=== PATIENT | male | born 1975 | race Caucasian/White ===

== ENCOUNTER 2018-03-15 19:50 | Emergency (ER) | payer MEDICARE, MEDICAID, SELFPAY ==
[2018-03-15 19:52] VITALS: BP 145/87; PULSE 91; RESP 24; TEMP 36.3; O2SAT 97; BMI 45.4
[2018-03-15 20:25] LABS: Absolute Lymphocyte Count 1.96 X10^3/ul (0.83-4.51); Absolute Neutrophil Count 7.3 X10^3/uL (2.0-7.7); Basophil# 0.03 X10^3/uL; Basophil% 0.3 % (0-1); Eosinophil# 0.09 X10^3/uL; Eosinophils% 0.9 % (0-5); Hematocrit 41.5 % (40-54); Hemoglobin 13.9 g/dl (13.0-16.5); Lymphocyte # 1.96 X10^3/ul (4.0); Lymphocyte % 19.5 % (19-41); Mean Corp Hgb Conc 33.5 g/gl (32-36); Mean Corpuscular Hgb 29.7 pg (27.0-32.0); Mean Corpuscular Volume 88.7 fL (80-94); Mean Platelet Vol. 10.9 fl (6.2-12.0); Monocyte# 0.65 X10^3/uL; Monocyte% 6.5 % (0-10); Neutrophil # 7.25 X10^3/uL (2.7-7.7); Neutrophil % 72.1 % (47-70); Platelet Count 249 K/mm3 (150-450); RBC Distribution Width CV 14.1 % (11.6-14.6); RBC Distribution Width SD 45.3 fl (35.1-43.9); Red Blood Count 4.68 M/mm3 (4.6-6.2); White Blood Count 10.1 K/mm3 (4.4-11.0)
[2018-03-15 20:27] LABS: POSITIVE COUNT NO; POSITIVE DIFFERENTIAL NO; POSITIVE MORPHOLOGY NO
[2018-03-15 20:31] LABS: Amphetamine Urine VISTA NEGATIVE (<1000 ng/mL); Barbiturate Urine VISTA NEGATIVE (< 200 ng/mL); Benzodiazepine Urine VISTA NEGATIVE (< 200 ng/mL); Cocaine Urine VISTA NEGATIVE (< 300 ng/mL); Ecstacy Urine VISTA NEGATIVE (< 500 ng/mL); Methadone Urine VISTA NEGATIVE (< 300 ng/mL); PCP Urine VISTA NEGATIVE (< 25 ng/mL); THC Urine VISTA NEGATIVE (< 50 ng/mL); Vista UDS pH Range 6
[2018-03-15 20:38] LABS: Anion Gap 12 (5-15); BUN 11 mg/dL (7-18); BUN/Creat Ratio 10.2 RATIO (10-20); Calcium,Total 8.9 mg/dL (8.5-10.1); Chloride 100 mmol/L (98-107); Creatinine, Serum 1.08 mg/dL (0.70-1.30); EST Glomerular Filtration Rate 79 mL/min (>60); Est Glom Filt Rate - Afr Amer 96 mL/min (>60); Estimated Creatinine Clearance 87.28 ml/min; Glucose 90 mg/dL (74-106); Potassium 3.9 mmol/L (3.5-5.1); Sodium Level 136 mmol/L (136-145)
--- NOTE | 2018-03-15 20:42 | ED.VISSUMM ---
- ER Visit Summary Date of Service: 03/15/18 Chief Complaint: Suicidal ideation History of Present Illness: The patient is a 43 M presenting with suicidal ideation and suicidal gesture. Patient states he was upset with the place that he lives. He states it smells like a skunk. He has been having financial problems. His mother is out of town. When she goes away he becomes upset. He was drinking alcohol today. He cut his right forearm with a knife. He complains of suicidal thoughts with plan to cut himself again. Last tetanus is unknown. Physical Examination: Vitals are stable. Patient is afebrile. Alert no acute distress. HEENT exam is unremarkable. Neck is supple. Lungs are clear and equal bilaterally. Heart is regular rate and rhythm. Abdomen is soft nontender nondistended. Extremities multiple superficial abrasions right forearm, active full range of motion, neurovascularly intact distally Skin is warm and dry. No focal neurologic deficit. Depressed affect with suicidal ideation Remainder of exam is unremarkable. Emergency Department Course and Treatment: CBC, chemistries unremarkable. Tox is negative. Alcohol 199. Patient given tetanus IM. Wounds were cleaned and dressed. Will discuss with the counseling center for evaluation. Disposition: Per counseling center Impression: Suicidal ideation, right forearm abrasion This note was generated with [employer] dictation software. It may contain incorrect words, spelling, and punctuation that were not noted in review of the chart prior to signing ED Disposition - Plan for ED Patient: Chief Complaint: Suicidal Referrals: Sukhi Bowers MD [Primary Care Provider] -
[2018-03-15 21:43] VITALS: PULSE 87; RESP 22; O2SAT 100
[2018-03-15] MEDS: Diphth,Pertuss(Acell),Tet Vac 0.5 ML Vial IM (21:45)
[2018-03-15 22:16] VITALS: RESP 12
--- NOTE | 2018-03-15 22:19 | ED.RN ---
LATISHA IS ON THE WAY TO SEE PT.
[2018-03-15 23:34] VITALS: BP 135/75; PULSE 97; RESP 17; O2SAT 94
[2018-03-16 00:11] VITALS: RESP 12
--- NOTE | 2018-03-16 01:35 | EKG12_ITS ---
Test Reason : [facility] Blood Pressure : / mmHG Vent. Rate : 090 BPM Atrial Rate : 090 BPM P-R Int : 134 ms QRS Dur : 084 ms QT Int : 364 ms P-R-T Axes : 061 047 068 degrees QTc Int : 445 ms Normal sinus rhythm Normal ECG Confirmed by JOAQUIN MESA, MARCI ([id number]), editorial director NOBLE VILLEGAS ([id number] on 03/21/2018 2:17:07 PM Referred By: RAJAN Confirmed By:MARCI NUÑEZ MD
[2018-03-16 01:42] LABS: Mucous, Urine 0 SEEN /hpf (<or=2+); Red Blood Cells-Urine 0 SEEN /hpf (0-5); Squamous Epithelial Cells - UA 0 SEEN /hpf (0-5); White Blood Cells 0 SEEN /hpf (0-5)
[2018-03-16 01:45] LABS: Color, Urine Straw (Yellow); Glucose, Dipstick Normal (Normal); Ketone-Dipstick Negative (Negative); Leukocyte Esterase-Dipstick Negative /ul (Negative); Nitrite-Dipstick Negative (Negative); Occult Blood-Urine Negative /ul (Negative); Protein-Dipstick Negative (Negative); Specific Gravity, Urine 1.005 (1.002-1.030); Urine Bilirubin Dipstick Negative (Negative); Urine Clarity Clear (Clear); Urine Urobilinogen Normal (Normal); Urine pH 6.5 (5.0 - 8.0)
[2018-03-16 01:53] LABS: AST(SGOT) 36 U/L (15-37); Alanine Aminotransfer ALT/SGPT 40 U/L (16-61); Alkaline Phosphatase 129 U/L (45-117); Bilirubin, Direct 0.07 mg/dL (0.00-0.30); Globulin 4.4 g/dL (2.2-4.2); Protein, Total 8.4 g/dL (6.4-8.2)
[2018-03-16 02:00] LABS: Bacteria RARE /hpf (None Seen)
[2018-03-16] MEDS: Acetaminophen 500 MG Tablet 1000 MG PO (02:02)
[2018-03-16 02:19] VITALS: RESP 15
[2018-03-16 04:13] VITALS: BP 132/67; PULSE 88; RESP 16; TEMP 36.6; O2SAT 96
== END 2018-03-16 07:57 ==
PROVIDERS: Emergency Medicine; Emergency Provider Emergency Medicine; Family Provider Family Medicine; PCP Family Medicine
DX: S50.811A Abrasion of right forearm, initial encounter (principal); X78.1XXA Intentional self-harm by knife, initial encounter; Y93.9 Activity, unspecified; Y92.9 Unspecified place or not applicable; Y99.9 Unspecified external cause status; Z23 Encounter for immunization; F20.9 Schizophrenia, unspecified; F31.9 Bipolar disorder, unspecified; Z72.0 Tobacco use; Z79.899 Other long term (current) drug therapy
CPT/HCPCS: 80048; 80076; 80307; 80320; 81001; 85025; 90715; 93005; 99284; G0480

== ENCOUNTER 2018-03-20 19:19 | Emergency (ER) | payer MEDICARE, MEDICAID, SELFPAY ==
[2018-03-20 19:20] VITALS: BP 152/98; PULSE 120; RESP 20; TEMP 36.9; O2SAT 96; BMI 45.4
[2018-03-20 19:58] LABS: Absolute Lymphocyte Count 1.77 X10^3/ul (0.83-4.51); Absolute Neutrophil Count 6.4 X10^3/uL (2.0-7.7); Basophil# 0.03 X10^3/uL; Basophil% 0.3 % (0-1); Eosinophil# 0.15 X10^3/uL; Eosinophils% 1.7 % (0-5); Hematocrit 39.1 % (40-54); Hemoglobin 12.6 g/dl (13.0-16.5); Lymphocyte # 1.77 X10^3/ul (4.0); Lymphocyte % 19.6 % (19-41); Mean Corp Hgb Conc 32.2 g/gl (32-36); Mean Corpuscular Hgb 28.8 pg (27.0-32.0); Mean Corpuscular Volume 89.5 fL (80-94); Mean Platelet Vol. 10.7 fl (6.2-12.0); Monocyte# 0.65 X10^3/uL; Monocyte% 7.2 % (0-10); Neutrophil # 6.42 X10^3/uL (2.7-7.7); Neutrophil % 70.9 % (47-70); Platelet Count 216 K/mm3 (150-450); RBC Distribution Width SD 46.1 fl (35.1-43.9); Red Blood Count 4.37 M/mm3 (4.6-6.2); White Blood Count 9.1 K/mm3 (4.4-11.0)
[2018-03-20 20:09] LABS: POSITIVE COUNT NO; POSITIVE DIFFERENTIAL NO; POSITIVE MORPHOLOGY NO
[2018-03-20 20:13] LABS: ALB/GLOB Ratio 0.9 RATIO (0.9-2.4); AST(SGOT) 31 U/L (15-37); Alanine Aminotransfer ALT/SGPT 50 U/L (16-61); Albumin, Serum 3.7 g/dL (3.2-5.0); Alkaline Phosphatase 119 U/L (45-117); Anion Gap 12 (5-15); BUN 14 mg/dL (7-18); BUN/Creat Ratio 12.2 RATIO (10-20); Calcium,Total 8.7 mg/dL (8.5-10.1); Chloride 101 mmol/L (98-107); Creatinine, Serum 1.15 mg/dL (0.70-1.30); EST Glomerular Filtration Rate 73 mL/min (>60); Est Glom Filt Rate - Afr Amer 89 mL/min (>60); Estimated Creatinine Clearance 81.97 ml/min; Globulin 4.1 g/dL (2.2-4.2); Glucose 89 mg/dL (74-106); Potassium 3.4 mmol/L (3.5-5.1); Protein, Total 7.8 g/dL (6.4-8.2); Sodium Level 137 mmol/L (136-145)
[2018-03-20 20:55] VITALS: BP 163/92; PULSE 116; RESP 20; O2SAT 96
[2018-03-20 21:04] LABS: Amphetamine Urine VISTA NEGATIVE (<1000 ng/mL); Barbiturate Urine VISTA NEGATIVE (< 200 ng/mL); Benzodiazepine Urine VISTA NEGATIVE (< 200 ng/mL); Cocaine Urine VISTA NEGATIVE (< 300 ng/mL); Ecstacy Urine VISTA NEGATIVE (< 500 ng/mL); Methadone Urine VISTA NEGATIVE (< 300 ng/mL); PCP Urine VISTA NEGATIVE (< 25 ng/mL); THC Urine VISTA NEGATIVE (< 50 ng/mL); Vista UDS pH Range 6
--- NOTE | 2018-03-20 21:07 | ED.RN ---
CALLED CRISIS TO SEE THIS PT, ANTOINE BAUTISTA IS [employer]
[2018-03-20 21:26] VITALS: BP 150/90; PULSE 102; RESP 18; O2SAT 96
[2018-03-20] MEDS: Acetaminophen 500 MG Tablet 1000 MG PO (21:43)
--- NOTE | 2018-03-20 22:44 | ED.DCSUM_ITS ---
- ER Visit Summary Date of Service: 03/20/18 Chief Complaint: Suicidal ideation History of Present Illness: The patient is a 43 M who presents with suicidal ideation. Apparently he had stated to the neighbor that he was having suicidal thoughts. Police were called. Initially the patient seemed calm. The police asked just to take him to the hospitalist that he could be evaluated. At this time he tried to close the police out of the home. He went for a knife that was laying on a picture of his mother and attempted to hurt himself. The police had to hold a knife back. The patient is currently intoxicated. He otherwise denies recent medical illness. Physical Examination: Afebrile initial heart rate 120 vitals otherwise normal Patient calm and cooperative with history and examination Moist mucous membranes Heart regular rhythm tachycardia Lungs are clear Abdomen soft Patient currently denies suicidal thoughts Test Results: CBC BMP unremarkable. Alcohol was 111. Urine drug screen negative. Emergency Department Course and Treatment: Patient was evaluated by crisis here. They are familiar with the patient. He was just recently hospitalized. They feel that he is safe for discharge with outpatient follow-up. [facility] [place] [facility] [place] [facility] [place] [facility] and [facility] will give him a ride there. Treatment Plan: [] Disposition: Discharge Impression: Suicidal ideation This note was generated with [employer] dictation software. It may contain incorrect words, spelling, and punctuation that were not noted in review of the chart prior to signing ED Disposition - Plan for ED Patient: Chief Complaint: Suicidal Referrals: Sukhi Bowers MD [Primary Care Provider] -
--- NOTE | 2018-03-20 22:44 | ED.DEP ---
ED Disposition - Plan for ED Patient: Chief Complaint: Suicidal Instructions: ED Depression Referrals: Sukhi Bowers MD [Primary Care Provider] -
[2018-03-20 22:51] VITALS: BP 149/88; PULSE 97; RESP 20; O2SAT 97
== END 2018-03-20 22:52 | disposition home or self-care (01) ==
LOC: ED 21:05
PROVIDERS: Emergency Provider Emergency Medicine; Family Provider Family Medicine; PCP Family Medicine
DX: R45.851 Suicidal ideations (principal); F10.129 Alcohol abuse with intoxication, unspecified; Y90.5 Blood alcohol level of 100-119 mg/100 ml; I10 Essential (primary) hypertension; F31.9 Bipolar disorder, unspecified; Z95.2 Presence of prosthetic heart valve
CPT/HCPCS: 80053; 80307; 80320; 85025; 99284; G0480

== ENCOUNTER → 2022-08-06 | Outpatient (CLI) | payer MEDICARE, MEDICAID, SELFPAY | END | disposition home or self-care (01) | PROVIDERS: PCP Family Medicine | DX: D72.829 Elevated white blood cell count, unspecified (principal) | CPT/HCPCS: 36415; 87040 ==

== ENCOUNTER 2023-09-28 10:03 | Emergency (ER) | payer MEDICARE, MEDICAID, SELFPAY ==
[2023-09-28 10:04] VITALS: BP 176/105; PULSE 95; RESP 14; TEMP 37.4; O2SAT 100; BMI 37.1
--- NOTE | 2023-09-28 10:23 | CT_ITS ---
STUDY: CT ABDOMEN AND PELVIS WITH CONTRAST REASON FOR EXAM: Male, 48 years old. Right-sided pain, history stage IV colon cancer RADIATION DOSAGE (If Supplied By Facility): CTDIvol = ( 16.80 ) mGy, DLP = ( 1312.24 ) mGycm TECHNIQUE: Transaxial images were obtained from the dome of the diaphragm to the symphysis pubis without oral contrast. IV 100mL Isovue-300 was administered. Sagittal and coronal images were reconstructed. Individualized dose optimization techniques were used for this CT. COMPARISON: None. FINDINGS: A portacatheter seen within the superior vena cava. The visualized lung bases are unremarkable. The visualized portions of the heart are within normal limits. There is a 7 cm x 5.4 cm x 6.4 cm hypodense mass in the left lobe of liver. A similar appearing hypodense lesion is seen in the dome of the liver on the right side measuring 4.5 synovitis 0.9 cm. There is also evidence of a 7.9 cm x 8.3 cm mass in the peripheral aspect of the left lobe of liver inferiorly as well as in the inferior aspect of the right lobe of the liver measuring 8.4 cm x 5.1 cm. This is suggestive of a metastatic deposits. There are multiple gallstones. Normal spleen. Normal pancreas. Normal bilateral adrenal glands. Normal right kidney. Normal left kidney. Normal visualized stomach. Normal small intestine. I suspect a 3 cm x 5.3 cm mass in the descending colon just distal to the splenic flexure. The appendix is visualized and appears normal. Normal abdominal aorta. Normal inferior vena cava. Normal retroperitoneum. Normal urinary bladder. Normal abdominal wall. There are diffuse degenerative changes of the visualized lumbar spine. Dextroscoliosis. Loss of the normal lumbar lordosis. CT/Abdomen/Pelvis W IV Cont ONLY IMPRESSION: Findings in keeping with hepatic metastasis as well as possible mass in the descending colon just distal to the splenic flexure. Gallstones. Electronically Signed: Mohsen Arredondo MD at 11:50 EST ,
[2023-09-28] MEDS: Ondansetron 4 MG/2 ML Vial IV (10:31)
[2023-09-28] MEDS: Morphine 4 MG/ML Syringe IV (10:31)
[2023-09-28] MEDS: 0.9% Normal Saline (1000mL) 1,000 ML 1000 ML IV (10:31)
[2023-09-28 10:52] LABS: Absolute Lymphocyte Count 1.12 X10^3/uL (0.83-4.51); Absolute Neutrophil Count 8.8 X10^3/uL (2.0-7.7); Basophil# 0.05 X10^3/uL; Basophil% 0.4 % (0-1); Eosinophil# 0.18 X10^3/uL; Eosinophils% 1.6 % (0-5); Hematocrit 33.4 % (40-54); Lymphocyte # 1.12 X10^3/ul (0.83-4.51); Lymphocyte % 9.7 % (19-41); Mean Corp Hgb Conc 29.9 g/dL (32-36); Mean Corpuscular Hgb 24.8 pg (27.0-32.0); Mean Corpuscular Volume 82.9 fL (80-94); Mean Platelet Vol. 10.3 fl (6.2-12.0); Monocyte# 1.37 X10^3/uL; Monocyte% 11.9 % (0-10); NRBC Flagged by Analyzer 0 % (0-5); Neutrophil # 8.79 X10^3/uL (2.7-7.7); Platelet Count 298 K/mm3 (150-450); RBC Distribution Width CV 17.2 % (11.6-14.6); RBC Distribution Width SD 51.6 fl (35.1-43.9); Red Blood Count 4.03 M/mm3 (4.6-6.2); White Blood Count 11.6 K/mm3 (4.4-11.0)
[2023-09-28 10:53] LABS: AST(SGOT) 20 U/L (15-37); Alanine Aminotransfer ALT/SGPT 12 U/L (16-61); Alkaline Phosphatase 127 U/L (45-117); Anion Gap 3 (5-15); BUN 10 mg/dL (7-18); BUN/Creat Ratio 11.6 RATIO (10-20); Bilirubin, Direct 0.17 mg/dL (0.00-0.30); Calcium,Total 8.9 mg/dL (8.5-10.1); Chloride 107 mmol/L (98-107); Creatinine, Serum 0.86 mg/dL (0.70-1.30); EST Glomerular Filtration Rate 100 mL/min (>60); Est Glom Filt Rate - Afr Amer 121 mL/min (>60); Estimated Creatinine Clearance 129.39 ml/min; Globulin 4.6 g/dL (2.2-4.2); Glucose 108 mg/dL (74-106); Lipase 22 U/L (13-75); Potassium 3.9 mmol/L (3.5-5.1); Protein, Total 7.6 g/dL (6.4-8.2); Sodium Level 134 mmol/L (136-145)
--- NOTE | 2023-09-28 11:08 | EDS_ITS ---
HPI History of Present Illness Chief Complaint: Abd Pain Detail of Chief Complaint: Right-sided abdominal pain Informant: patient Onset/Context/Timing Onset: Yesterday Context: Sudden Onset Timing: Continuous Quality: Pain Location: Right upper and right lower Current Severity: Severe Maximum Severity: Severe Worsened by: Nothing specific Relieved by: Nothing Associated Symptoms Associated Symptoms: Nausea and 1 mushy stool in the past 24 hours Narrative Narrative: Patient is a 48-year-old male with metastatic colon cancer to liver who presents with right-sided abdominal pain. He denies fever, chills night sweats. He denies headache, visual, ocular auditory symptoms. He denies chest pain. No shortness of breath, cough or [place] exertion. [place] orthopnea or PND. He denies increased abdominal girth. He denies dysuria, frequency, urgency or hematuria. Denies change in color of his urine. He has not noted black or maroon-colored stool. He does endorse generalized weakness. Prior similar symptoms: No Recent Illness/Hospitalization: [facility] Medical History Colon cancer Home Medications amlodipine 10 mg tablet 10 mg PO DAILY 02/23/14 [History Last Taken 02/22/14] metoprolol tartrate 25 mg tablet 25 mg PO BID 02/23/14 [History Last Taken 02/22/14] oxcarbazepine 300 mg tablet 300 mg PO DAILY 02/23/14 [History Last Taken 02/22/14] venlafaxine 75 mg capsule,extended release 24 hr 75 mg PO BID 02/23/14 [History Last Taken 02/22/14] ziprasidone HCl 40 mg capsule 40 mg PO DAILY 02/23/14 [History Last Taken 02/22/14] hydrocodone-acetaminophen 5-325mg 5mg-325mg 1 tab PO Q6H PRN PRN Pain 3 days #10 TABLETS 09/28/23 [Rx Last Taken Unknown] hydroxyzine pamoate 100 mg capsule 100 mg PO DAILY 09/28/23 [History Last Taken Unknown] loratadine 10 mg tablet 10 mg PO Q24H 09/28/23 [History Last Taken Unknown] naltrexone 50 mg tablet 50 mg PO Q24H 09/28/23 [History Last Taken Unknown] ondansetron 4 mg disintegrating tablet 4 mg PO Q8H PRN PRN Nausea #10 tabs 09/28/23 [Rx Last Taken Unknown] potassium chloride 20 mEq tablet,extended release(part/cryst) 20 meq PO BID 09/28/23 [History Last Taken Unknown] propranolol 10 mg tablet 10 mg PO DAILY 09/28/23 [History Last Taken Unknown] Allergy/AdvReac Type Severity Reaction Status Date / Time No Known Allergies Allergy Verified 09/28/23 10:06 Social History (Updated 09/28/23 @ 12:[address] Reese Dia MD) household members: family Smoking Status: Never smoker substance use type: does not use ROS ROS ED Constitutional Constitutional ED: Reports weight loss; Denies chills, fever(s), subjective or sweats Eyes Eyes: Denies blurry vision, change in vision or diplopia ENT ENT ED: Denies ear pain, rhinorrhea or sore throat Cardiovascular Cardiovascular: Denies chest pain, orthopnea, paroxysmal nocturnal dyspnea or racing heartbeat Respiratory/Chest Respiratory/Chest: Denies cough, dyspnea, dyspnea on exertion, orthopnea or paroxysmal nocturnal dyspnea Gastrointestinal Gastrointestinal: Reports abdominal pain; Denies constipation, diarrhea, melena or vomiting Genitourinary Genitourinary ED: Denies dysuria, hematuria or urinary frequency Musculoskeletal Musculoskeletal: Denies arthralgias, back pain, myalgias or neck pain Integumentary Denies rash Neurologic Neurologic: Reports weakness; Denies headache(s) or paresthesias Psychiatric Psychiatric: Denies anxiety Endocrine Endocrinology: Denies cold intolerance or heat intolerance Hematologic/Lymphatic Hematologic/Lymphatic: Reports systems reviewed and no addt'l complaints, except as documented EXAM Physical Exam Const Vital Signs: 09/28/23 10:04 09/28/23 11:17 Temperature 99.4 F H 98.3 F Temperature Source Temporal Oral Pulse Rate 95 83 Respiratory Rate 14 18 Blood Pressure 176/105 H 156/91 H Blood Pressure Mean 128 112 Pulse Ox 100 100 Oxygen Delivery Method Room Air Positive well nourished, well developed and obese Constitutional Narrative: Patient appears uncomfortable. General Appearance ED: well developed and pallor; Negative for cyanotic or diaphoretic Nutritional Appearance: obese HEENT Reports dry mucous membranes HEENT Narrative: Head is atraumatic and normocephalic. Ears are normal. Nares are patent. Posterior pharynx out erythema or exudate. Mouth ED: Yes dry mucous membranes Mouth: dry mucous membranes Eyes PERRL and EOMs intact bilaterally General Eye ED: Negative for pale conjunctiva or scleral icterus Neck no lymphadenopathy, supple and no JVD Chest Wall inspection of chest normal and palpation of chest normal Resp normal respiratory effort and clear to auscultation bilaterally Cardio regular rate, regular rhythm, S1 normal heart sound, S2 normal heart sound and no murmurs GI no masses; Negative for non-tender, non-distended or hepatosplenomegaly Auscultation: hypoactive bowel sounds Palpation: soft and tender RLQ and RUQ Narrative: External genitalia normal. Back/Spine no CVA tenderness Extremity normal to inspection General Extremety ED: Yes edema; Negative for tenderness General Extremity: edema Neuro oriented x3, CN's II-XII intact bilaterally and no sensory deficits noted Sensorium / Orientation: alert Psych mental status grossly normal Skin no rashes or lesions noted, no wounds and No skin turgor normal General Skin Exam: pallor; Negative for jaundice MDM MDM MDM Narrative Medical decision making narrative: Patient presents with right-sided abdominal pain greater than left. History of metastatic colon cancer to liver. He has no prior history of bowel obstruction. Will obtain CT of the abdomen to assess for ileus versus partial small bowel obstruction versus pain due to metastasis. Unlikely that patient has pneumoperitoneum since he has no peritoneal findings. Doubt biliary disease. Appendicitis is a possibility as well. Will obtain CBC, electrolyte panel and CT of the abdomen with IV contrast. History & Record Review Additional record(s) reviewed:: Prior outpatient record, Prior ED visit and Prior labs Lab Data Attestation: I reviewed the patient's lab results. Lab results narrative: White count slight elevated 11.6 with slight shift. There is no bandemia. Patient has anemia with normal indices. Competence of metabolic panel is marked for an elevated alk phos, which is at baseline. Urinalysis reveals normal specific gravity and positive for leukoesterase. Micro was negative. Labs: Laboratory Results - last 24 hr 09/28/23 09/28/23 10:30 11:10 WBC 11.6 H RBC 4.03 L Hgb 10.0 L Hct 33.4 L MCV 82.9 MCH 24.8 L MCHC 29.9 L RDW Std Deviation 51.6 H RDW Coeff of Nelly 17.2 H Plt Count 298 MPV 10.3 Immature Gran % (Auto) 0.400 Neut % (Auto) 76.0 H Lymph % (Auto) 9.7 L [place] % (Auto) 11.9 H Eos % (Auto) 1.6 Baso % (Auto) 0.4 Absolute Neuts (auto) 8.8 H Absolute Lymphs (auto) 1.12 Nucleated RBC % 0 Sodium 134 L Potassium 3.9 Chloride 107 Carbon Dioxide 24.0 Anion Gap 3 L BUN 10 Creatinine 0.86 Estim Creat Clear Calc 129.39 Est GFR (MDRD) Af Amer 121 Est GFR (MDRD) Non-Af 100 BUN/Creatinine Ratio 11.6 Glucose 108 H Calcium 8.9 Total Bilirubin 0.50 Direct Bilirubin 0.17 AST 20 ALT 12 L Alkaline Phosphatase 127 H Total Protein 7.6 Albumin 3.0 L Globulin 4.6 H Lipase 22 Urine Color Yellow Urine Clarity Sl. Cloudy Urine pH 6.5 Ur Specific [place] 1.010 Urine Protein 30 H Urine Glucose (UA) Normal Urine Ketones Negative Urine Occult Blood Negative Urine Nitrite Negative Urine Bilirubin Negative Urine Urobilinogen 1 H Ur Leukocyte Esterase 25 H Urine RBC 0 SEEN Urine WBC 0-5 SEEN Ur Squamous Epith Cells 0 SEEN Urine Bacteria 0 SEEN Urine Mucus 0 SEEN Radiography Diagnostic Testing: Clinical Impression(s) from Imaging Studies Abdomen/Pelvis CT 09/28/23 10:23 IMPRESSION: Findings in keeping with hepatic metastasis as well as possible mass in the descending colon just distal to the splenic flexure. Gallstones. Electronically Signed: Mohsen Arredondo MD at 11:50 EST , Treatment and Re-Evaluation :: When patient was reassessed at 1232 he was no longer in pain. Plan is to discharge with antiemetic and opiate analgesia. He was made aware of his findings. He request to follow-up with surgeon at the [facility]. He sees Dr. Mas in the past. Discharge Plan Triage Chief Complaint: Abd Pain ED Provider: Reese Dia Dx/Rx/DC Orders Clinical Impression: Colon cancer metastasized to liver, Acute dehydration, Right sided abdominal pain, Cholelithiasis Instructions: ED Gallstones with Biliary Colic Prescriptions: New hydrocodone-acetaminophen [hydrocodone-acetaminophen] 5-325 mg tablet 1 tab PO Q6H PRN PRN (Reason: Pain) 3 Days Qty: 10 0RF ondansetron [ondansetron] 4 mg tablet,disintegrating 4 mg PO Q8H PRN PRN (Reason: Nausea) Qty: 10 0RF No Action venlafaxine 75 MG capsule,extended release 24hr 75 mg PO BID Patient Comments: oxcarbazepine 300 MG tablet 300 mg PO DAILY Patient Comments: amlodipine 10 MG tablet 10 mg PO DAILY Patient Comments: ziprasidone HCl 40 MG capsule 40 mg PO DAILY Patient Comments: metoprolol tartrate 25 MG tablet 25 mg PO BID Patient Comments: hydroxyzine pamoate 100 mg capsule 100 mg PO DAILY loratadine 10 mg tablet 10 mg PO Q24H naltrexone 50 mg tablet 50 mg PO Q24H potassium chloride 20 mEq tablet,ER particles/crystals 20 meq PO BID propranolol 10 mg tablet 10 mg PO DAILY Primary Care Provider: Sukhi Bowers Referrals: Sukh Page MD [Non-Staff] - 1 Week Sukhi Bowers MD [Primary Care Provider] - 3-5 Days if not improving Disposition Disposition: Home, Self Care
[2023-09-28 11:17] VITALS: BP 156/91; PULSE 83; RESP 18; TEMP 36.8; O2SAT 100
[2023-09-28 11:18] LABS: Bacteria 0 SEEN /hpf (None Seen); Mucous, Urine 0 SEEN /hpf (<or=2+); Red Blood Cells-Urine 0 SEEN /hpf (0-5); Squamous Epithelial Cells - UA 0 SEEN /hpf (0-5)
[2023-09-28 11:21] LABS: Color, Urine Yellow (Yellow); Glucose, Dipstick Normal (Normal); Ketone-Dipstick Negative (Negative); Leukocyte Esterase-Dipstick 25 /ul (Negative); Nitrite-Dipstick Negative (Negative); Occult Blood-Urine Negative /ul (Negative); Protein-Dipstick 30 mg/dl (Negative); Urine Bilirubin Dipstick Negative (Negative); Urine Clarity Sl. Cloudy (Clear); Urine Urobilinogen 1 mg/dl (Normal); Urine pH 6.5 (5.0 - 8.0)
[2023-09-28 11:27] LABS: White Blood Cells 0-5 SEEN /hpf (0-5)
[2023-09-28 12:43] VITALS: BP 131/85; PULSE 79; RESP 14; O2SAT 99
[2023-09-28 12:59] VITALS: BP 135/85; PULSE 79; RESP 14
== END 2023-09-28 13:00 | disposition home or self-care (01) ==
PROVIDERS: Emergency Provider Emergency Medicine; PCP Family Medicine; Visit Provider Emergency Medicine
DX: K80.20 Calculus of gallbladder without cholecystitis without obstruction (principal); C78.7 Secondary malignant neoplasm of liver and intrahepatic bile duct; C18.6 Malignant neoplasm of descending colon; E86.0 Dehydration; E66.9 Obesity, unspecified; Z68.37 Body mass index [BMI] 37.0-37.9, adult
CPT/HCPCS: 36591; 74177; 80048; 80076; 81001; 83690; 85025; 96361; 96374; 96375; 99284; J7030; Q9967; A4216; J2405